=== PATIENT | female | born 1975 | race Caucasian/White ===

== ENCOUNTER 2020-05-24 16:07 | Outpatient (CLI) | payer SELFPAY ==
--- NOTE | 2020-05-25 09:56 | ONC FU_ITS ---
Dr. Dean Patient Follow-Up Note Patient: Jenna Jung Unit #: [id number]: 1975 Dicatated By: Rudi Dean M.D.Date of Visit:May 24, 2020 Onc Med Follow-up/Prog Note Chief Complaint: Ovarian cancer/fibrous dysplasia. 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 She had presented in March of 2011 with an enlarging pelvic/abdominal mass. Pelvic ultrasound reported a large cystic mass in the area of the right adnexa, though it actually was the left. In any case, the appearance was consistent with a complex cyst and excision was recommended for exclusion of underlying neoplasm. By ultrasound the cystic mass measured 17.7 x 15.8 x 11.0 cm. On 05/01/2011 she underwent laparoscopic left salpingo-oophorectomy. Initially the cyst was punctured with an aspiration needle with removal of 1870 mL of fluid. With the cyst deflated, it was noted that she had a mass arising from the left ovary. It was completely removed with the left salpingo-oophorectomy. Pathology showed grade 1 (well-differentiated) mixed sero-mucinous cyst adenocarcinoma. The tumor measured 15.0 x 14.0 cm. It was noted that the capsule was intact and there was no tumor identified on the ovarian surface. She was then referred to a ATHLETIC EQUIPMENT CUSTODIAN oncologist. On 06/05/2011 she underwent exploratory laparotomy with total abdominal hysterectomy, right salpingo-oophorectomy, bilateral pelvic periaortic lymph node dissection, omentectomy, appendectomy, and multiple peritoneal biopsies. Her final staging was 1C. She was given postoperative adjuvant chemotherapy with 6 cycles of carboplatin/Taxol, which she completed in October 2011. During subsequent followup, she was noted to have some problems in the right facial area, including the right eye. In August 2011 she underwent a biopsy of the right frontal calvarium which apparently showed fibrous dysplasia. She reported having a total of 6 or 7 surgeries, including plastic surgery on the right eye. I have not had those records available. I had seen her initially in December 2012 for follow-up of her ovarian cancer. Her evaluation at that time showed no evidence of recurrence. As she had no medical insurance, she failed to return for regular follow-up. However, she did re-establish care in June 2015. Her evaluation at that time showed no evidence of recurrence of the ovarian cancer. She was having headaches, presumably related to the fibrous dysplasia. She was given the option to undergo treatment with IV zoledronic acid. After reviewing the side effects, she ultimately declined treatment. Her medical history is significant for the ovarian cancer, for fibrous dysplasia of bone, and for anxiety/depression. She also reported having memory loss and cognitive dysfunction following her chemotherapy. She has a history of smoking 1/2 pack of cigarettes daily. She is seen for a scheduled followup visit. With her previous visit she had significant stress associated with being a caregiver for her who is very ill with ALS. 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 She has good energy and she stays very active. Her ECOG score is 0. She does not have good appetite. She says she has to remind herself to eat. Her weight is down a few pounds. She has not had fever. She does have hot flashes and sweating. Her main complaint is that she is having severe headaches on a daily basis. They tend to start in the frontal area, but they involve her whole head. She has continued taking hydrocodone/APAP 4 times a day, and she admits to taking extra Tylenol along with other [id number]-[id number] preparations, which she tends to rotate. She does not have any associated neurologic symptoms. Medications: ALPRAZolam 1 mg - Take 1 Tablet Oral PRN, Citalopram Hydrobromide 40 mg - Take 1 Tablet Oral daily, Hydrocodone-Acetaminophen 1 Tablet (of 10-325 mg) Oral four times a day PRN Allergies: No Known Allergies. Review of Systems: Constitutional - She has good energy and she remains very active. Appetite is not good. Her weight is down a few pounds. She does not have fever. She does have hot flashes and sweating. ECOG score is 0, ENMT - No sinus congestion/drainage. No mouth sores. No sore throat or difficulty swallowing, Hematologic/Lymphatic - No abnormal bruising or bleeding, Respiratory - No shortness of breath. No cough. No pleuritic pain or hemoptysis, Cardiovascular - No angina pain. No palpitations, Gastrointestinal - No nausea or vomiting. No heartburn or acid reflux. Bowel function remains adequate with stool softeners. No blood in the stool or black stools, Genitourinary (F) - No dysuria or hematuria. No urinary frequency. No urgency or incontinence, Musculoskeletal - No joint or bone pain, Integumentary - No skin rash, Neurologic - She continues to have headache on a daily basis, severe enough that at times she has missed work because of it. The headaches start in the frontal area, but her whole head hurts. She admits to taking extra Tylenol in addition to her hydrocodone/APAP. She does not have dizziness and she has no focal neurologic symptoms, Psychiatric - She has anxiety/depression and she has been under a lot of stress. No insomnia. Vital Signs: Performed on May 24, 2020 16:10 Height - 68.00 in Weight - 196.8 lbs (LOW) BSA - 2.03 sq.m BMI - 29.92 Temperature - 98.0 F (LOW) Pulse - 67 /min Respiration - 20 /min BP - 128/74 mm(hg) O2 Sat - 95 % (LOW) Pain - 4 Physical Examination: Constitutional - She looks pretty good generally, Eyes - Sclerae nonicteric. Conjunctivae clear, ENMT - No lesions noted in the oral cavity, Hematologic/Lymphatic - No cervical, clavicular, or axillary adenopathy, Respiratory - Lungs are clear with good air movement bilaterally, Cardiovascular - Heart rhythm is regular. There is a II/ sytolic murmur. There is no gallop or rub noted, Abdomen - Soft. Liver and spleen are not enlarged. There is no abdominal mass or ascites noted and there is no inguinal adenopathy, Extremities - No edema, Neurologic - No focal neurologic deficits noted. Impression: 1. The patient has serous cystadenocarcinoma of the left ovary, stage IC. 2. Her treatment included laparoscopic left salpingo-oophorectomy in April 2011 followed in May 2011 by total abdominal hysterectomy/right salpingo-oophorectomy/omentectomy/bilateral pelvic aortic lymph node dissection/appendectomy/multiple peritoneal biopsies. 3. She was then given adjuvant chemotherapy with 6 cycles of carboplatin/Taxol, completed in October 2011. She has since then been followed on observation/expectant management. 4. She has biopsy proven fibrous dysplasia involving right frontal calvarium. She has chronic headache, which she assumes is related to the fibrous dysplasia. Her other medical illnesses include: 5. She has severe chronic constipation. 6. She has chronic anxiety/depression. 7. She reports memory loss and cognitive dysfunction following the chemotherapy. She has been followed on observation following her chemotherapy. During followup she has continued to have gradually worsening headaches. 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 She has continued been taking hydrocodone/APAP 4 times a day on a regular basis, and she alternates taking additional iyrm-viv-fighfae preparations, which include Tylenol. She also has ongoing issues with anxiety/depression. There has been no evidence, though, of recurrence of the ovarian cancer. Plan: She remains on observation/expectant management for the ovarian cancer. The management of her headaches has become increasingly problematic. She is requesting to continue an opiate pain medication, with something other than hydrocodone/APAP. In the past she had poor tolerance for oxycodone because it worsened her depression. Thus far she has not had further evaluation for the headache, mainly because she is uninsured. However, at this point I think she really does need to consult with a neurologist, and I will at least do that informally. I will check into other options for managing her pain. In the meantime, she is advised that she absolutely should not be taking Tylenol or other acetaminophen preparation in addition to hydrocodone/APAP. Signed By: Rudi Dean M.D. <<Signature on File>>
== END 2020-05-24 16:08 | disposition home or self-care (01) ==
LOC: ONCMED 16:10
PROVIDERS: PCP Family Medicine; Visit Provider Internal Medicine Medical Oncology
DX: Z08 Encounter for follow-up examination after completed treatment for malignant neoplasm (principal); Z85.43 Personal history of malignant neoplasm of ovary; M85.08 Fibrous dysplasia (monostotic), other site; K59.04 Chronic idiopathic constipation; F41.9 Anxiety disorder, unspecified; F32.9 Major depressive disorder, single episode, unspecified; R41.3 Other amnesia; Z79.899 Other long term (current) drug therapy
CPT/HCPCS: G0463

== ENCOUNTER 2020-08-02 00:28 | Emergency (ER) | payer SELFPAY ==
[2020-08-02 00:36] VITALS: BP 131/76; PULSE 78; RESP 17; TEMP 36.7; O2SAT 95; BMI 30.4
--- NOTE | 2020-08-02 00:48 | CTR_ITS ---
PROCEDURE INFORMATION: Exam: CT Abdomen And Pelvis With Contrast Exam date and time: 08/02/2020 12:56 AM Age: 45 years old Clinical indication: Prior surgery; Surgery type: Hysterectomy; Patient HX: Persistent constipation x 2 months; Additional info: Bloating, constipation, pain, vomiting TECHNIQUE: Imaging protocol: Computed tomography of the abdomen and pelvis with contrast. Radiation optimization: All CT scans at this facility use at least one of these dose optimization techniques: automated exposure control; mA and/or kV adjustment per patient size (includes targeted exams where dose is matched to clinical indication); or iterative reconstruction. Contrast material: OMNI 300; Contrast volume: 95 ml; Contrast route: INTRAVENOUS (IV); COMPARISON: No relevant prior studies available. RADIATION DOSE METRICS: Total DLP (mGy-cm): 1072.87 FINDINGS: Liver: Normal. No mass. Gallbladder and bile ducts: Normal. No calcified stones. No ductal dilation. Pancreas: Normal. No ductal dilation. Spleen: Normal. No splenomegaly. Adrenal glands: Normal. No mass. Kidneys and ureters: Normal. No hydronephrosis. Stomach and bowel: Constipation. Prominent fluid in the small bowel may reflect an enteritis. Appendix: No evidence of appendicitis. Intraperitoneal space: Unremarkable. No free air. No significant fluid collection. Vasculature: Unremarkable. No abdominal aortic aneurysm. Lymph nodes: Unremarkable. No enlarged lymph nodes. Urinary bladder: Unremarkable as visualized. Reproductive: Unremarkable as visualized. Bones/joints: Unremarkable. No acute fracture. Soft tissues: Unremarkable. CT/CT abdomen pelvis w con* [id number] IMPRESSION: 1. Prominent fluid in the small bowel may reflect an enteritis. 2. Constipation. Radiation Dose CTDIVOL = (mGy): DLP = 1072.87 (mGy-cm)
--- NOTE | 2020-08-02 00:53 | W.ED.GENADLT ---
HPI - General Adult General: Chief complaint: General Medical Stated complaint: constipation, 2 months Time Seen by Provider: 08/02/20 00:37 History of Present Illness: HPI narrative: Patient arrives here with complaint abdominal pain bloating and constipation x2 months. Patient says she has done mag citrate overnight for the last 3 nights she is done for 4-5 enemas daily for the last 2 to 3 weeks. She states she is taken 2 boxes of Ducalox supppositories. Use multiple radu-jmi-lrpqpiz laxatives states she is having watery stool for the last 2 months. Said she had some dark emesis over the last 2 days. Said he has history of tummy tuck ovarian cancer and other abdominal surgeries. Said she denies fever chills shortness of breath. He has been able to eat and drink fluids though she is not eating much solid foods complaint: Constipation Onset (ago): month(s) Location: abdomen Radiation: non-radiation Severity: moderate Severity scale (1-10): 4 Quality: dull and constant Relieving factors: none Associated symptoms: Reports no associated symptoms and vomiting; Deny chest pain, dyspnea, headache(s), nausea or rash Review of Systems Const: Denies: fever(s), chills or body aches Eyes: Denies: change in vision or blurry vision ENMT: Denies: throat pain or nasal congestion Card: Denies: chest pain or dyspnea on exertion Resp: Denies: dyspnea, productive cough or non-productive cough GI: Reports: abdominal pain, vomiting, constipation and change in bowel habits; Denies: nausea Musc: Denies: extremity pain Skin/Breast: Denies: rash Neuro: Denies: headache(s) Psych: Denies: anxiety or depression Jair/Lymph: Denies: easy bruising Physical Exam Const: COMMON NORMALS: no acute distress, average body habitus and patient oriented x3 HENMT: COMMON NORMALS: normocephalic HEAD & SCALP: normal to inspection and normocephalic FACE & SINUS: normal facial exam Eye: COMMON NORMALS: conjunctivae normal GENERAL EYE: appearance normal, both eyes and all related structures CONJUNCTIVA: Yes conjunctivae normal Neck/C-Spine: COMMON NORMALS: no JVD Chest: COMMONS NORMALS: normal inspection of the chest Resp: COMMON NORMALS: normal respiratory effort and clear to auscultation bilaterally AUSCULTATION: clear to auscultation bilaterally Cardio: COMMON NORMALS: no JVD, regular rate and regular rhythm RATE: regular rate RHYTHM: regular rhythm GI: INSPECTION: Yes abdominal distension AUSCULTATION: Yes Hypoactive bowel sounds present PALPATION: Yes Tenderness to palpation present (GI) Details: RLQ and RUQ PERCUSSION: dullness to percussion RECTAL EXAM: deferred Extremity: COMMON NORMALS: normal to inspection and full ROM Neuro: COMMON NORMALS: patient oriented x3 Course Vital Signs: Vital signs: Vital Signs Temperature 98.1 F 08/02/20 00:36 Pulse Rate 76 08/02/20 01:26 Respiratory Rate 18 08/02/20 01:26 Blood Pressure 114/68 08/02/20 01:26 Pulse Oximetry 93 08/02/20 01:26 MDM - General Adult MDM Narrative: Medical decision making narrative: Discussed radiology and lab results with Dr. Qureshi agreed on plan of care. Lab Data: Labs: Lab Results 08/02/20 08/02/20 08/02/20 Range/Units 00:57 00:57 00:57 WBC 8.7 (4.0-10.0) 10^3/ uL RBC 4.47 (4.1-5.3) 10^6/u L Hgb 13.3 (11.5-15.3) g/dL Hct 39.4 (37.0-47.0) % MCV 88.1 (81-99) fL MCH 29.8 (28.0-34.0) pg MCHC 33.8 (30.0-36.0) g/dL RDW 12.7 (12.1-15.1) % Plt Count 361 (130-400) 10^3/c mm MPV 9.0 (7.4-10.4) fL Neut % (Auto) 50.8 % Lymph % (Auto) 34.9 % Glascock % (Auto) 6.1 % Eos % (Auto) 7.1 % Baso % (Auto) 0.9 % Neut # (Auto) 4.39 (1.8-7.7) 10^3/u L Lymph # (Auto) 3.0 (0.8-4.8) 10^3/u L Glascock # (Auto) 0.5 (0.2-0.9) 10^3/u L Eos # (Auto) 0.6 (0.0-0.8) 10^3/u L Baso # (Auto) 0.1 (0.0-0.1) 10^3/u L Nucleated RBC % (a uto) 0 % Nucleated RBCs # 0.0 /100WBC Sodium 138 (136-145) mmol/L Potassium 3.6 (3.5-5.1) mmol/L Chloride 100 (98-107) mmol/L Carbon Dioxide 27 (22-29) mmol/L Anion Gap 14.6 (5-19) BUN 10 (6-20) mg/dL Creatinine 0.8 (0.5-0.9) mg/dL GFR Calculation 78.3 L (90-130) mL/min Glucose 111 (65-115) mg/dL Calculated Osmolal ity 286 (285-295) mOsm/k g Lactate 2.2 (0.5-2.2) mmol/L Calcium 8.9 (8.5-10.5) mg/dL Total Bilirubin 0.2 (0.15-1.2) mg/dL AST 5 (0-32) U/L ALT 30 (0-33) U/L Alkaline Phosphata se 72 (35-105) IU/L Total Protein 7.1 (6.6-8.7) g/dL Albumin 3.9 (3.5-5.2) g/dL Globulin 3.2 (1.3-4.6) g/dL Lipase 42 (13-60) U/L HCG, Qual (Negative) 08/02/20 Range/Units 00:57 WBC (4.0-10.0) 10^3/ uL RBC (4.1-5.3) 10^6/u L Hgb (11.5-15.3) g/dL Hct (37.0-47.0) % MCV (81-99) fL MCH (28.0-34.0) pg MCHC (30.0-36.0) g/dL RDW (12.1-15.1) % Plt Count (130-400) 10^3/c mm MPV (7.4-10.4) fL Neut % (Auto) % Lymph % (Auto) % Glascock % (Auto) % Eos % (Auto) % Baso % (Auto) % Neut # (Auto) (1.8-7.7) 10^3/u L Lymph # (Auto) (0.8-4.8) 10^3/u L Glascock # (Auto) (0.2-0.9) 10^3/u L Eos # (Auto) (0.0-0.8) 10^3/u L Baso # (Auto) (0.0-0.1) 10^3/u L Nucleated RBC % (a uto) % Nucleated RBCs # /100WBC Sodium (136-145) mmol/L Potassium (3.5-5.1) mmol/L Chloride (98-107) mmol/L Carbon Dioxide (22-29) mmol/L Anion Gap (5-19) BUN (6-20) mg/dL Creatinine (0.5-0.9) mg/dL GFR Calculation (90-130) mL/min Glucose (65-115) mg/dL Calculated Osmolal ity (285-295) mOsm/k g Lactate (0.5-2.2) mmol/L Calcium (8.5-10.5) mg/dL Total Bilirubin (0.15-1.2) mg/dL AST (0-32) U/L ALT (0-33) U/L Alkaline Phosphata se (35-105) IU/L Total Protein (6.6-8.7) g/dL Albumin (3.5-5.2) g/dL Globulin (1.3-4.6) g/dL Lipase (13-60) U/L HCG, Qual Negative (Negative) Discharge Plan Discharge Patient Disposition: Home Clinical Impression: Enteritis Constipation Qualifiers: Constipation type: slow transit constipation Qualified Code(s): K59.01 - Slow transit constipation Condition: Stable Prescriptions: New lactulose 10 gram packet 10 g PO DAILY Qty: 30 RF: 0 Discharge Orders: Discharge ED (Routine); Ordered 08/02/20 Ordered By: Solitario Alcantar Referrals: Hira Osei MD [Primary Care Provider] - Discharge Diet: As Directed Discharge Activity: Increase activity as tolerated Patient Instructions: Constipation (ED) Activity Restrictions/Additional Instructions: Follow-up with medical provider as directed. Take medications as prescribed. Return to the ER or your medical provider if condition worsens. Please read and understand discharge instructions. If any questions ask please. Recommend soup diet for next 36 to 48 hours. Establish primary care provider. Use lactulose as needed to help make sure that you have normal bowel movements. Coding Level of Care Code ED Pick Pulling Machine Operator for Chg Fwd Exam Comprehensive
[2020-08-02 01:05] LABS: Basophils # 0.1 10^3/uL (0.0-0.1); Basophils % 0.9 %; Eosinophils # 0.6 10^3/uL (0.0-0.8); Eosinophils % 7.1 %; Hematocrit 39.4 % (37.0-47.0); Hemoglobin 13.3 g/dL (11.5-15.3); Lymphocytes % 34.9 %; Mean Corpuscular HGB Conc 33.8 g/dL (30.0-36.0); Mean Corpuscular Hemoglobin 29.8 pg (28.0-34.0); Mean Corpuscular Volume 88.1 fL (81-99); Monocytes # 0.5 10^3/uL (0.2-0.9); Monocytes % 6.1 %; Neutrophils # 4.39 10^3/uL (1.8-7.7); Neutrophils % 50.8 %; Nucleated Red Blood Cells % 0 %; Platelet Count 361 10^3/cmm (130-400); Red Blood Count 4.47 10^6/uL (4.1-5.3); Red Cell Distribution Width 12.7 % (12.1-15.1); White Blood Count 8.7 10^3/uL (4.0-10.0)
[2020-08-02] MEDS: iohexol 300 mg/mL 100 mL Btl IV (01:05)
[2020-08-02 01:19] LABS: HCG, Serum Qual Negative (Negative)
[2020-08-02] MEDS: sodium chloride 0.9% 1,000 ML 999 ML IV (01:23)
[2020-08-02 01:26] VITALS: BP 114/68; PULSE 76; RESP 18; O2SAT 93
[2020-08-02 01:30] LABS: Lactate (Lactic Acid level) 2.2 mmol/L (0.5-2.2)
[2020-08-02 01:31] LABS: Alanine Aminotransferase 30 U/L (0-33); Albumin Level 3.9 g/dL (3.5-5.2); Alkaline Phosphatase 72 IU/L (35-105); Anion Gap 14.6 (5-19); Blood Urea Nitrogen 10 mg/dL (6-20); Calcium 8.9 mg/dL (8.5-10.5); Carbon Dioxide 27 mmol/L (22-29); Chloride 100 mmol/L (98-107); Globulin 3.2 g/dL (1.3-4.6); Glomerular Filtration Rate 78.3 mL/min (90-130); Glucose 111 mg/dL (65-115); Lipase 42 U/L (13-60); Osmolality Calculated 286 mOsm/kg (285-295); Potassium 3.6 mmol/L (3.5-5.1); Sodium 138 mmol/L (136-145); Total Bilirubin 0.2 mg/dL (0.15-1.2); Total Protein 7.1 g/dL (6.6-8.7)
[2020-08-02 01:40] LABS: Aspartate Amino Transferase 5 U/L (0-32)
[2020-08-02 01:55] LABS: Add Urine Microscopic? YES; Bilirubin Urine Neg (Negative); Blood Urine Neg (Negative); Glucose Urine UA Norm (Normal); Ketones Urine Negative (Negative); Leukocyte Esterase Urine Trace (Negative); Nitrate Urine Negative (Negative); Protein Urine Neg (Negative); Specific Gravity, Urine 1.015 (1.005-1.030); Urine Appearance Clear (CLEAR); Urine Color Yellow (Yellow); Urobilinogen Urine Norm (Negative); pH Urine 6.5 (5-7)
[2020-08-02 01:58] LABS: Add Urine Culture? No; Bacteria Urine TRACE /hpf; RBC Urine 0-4 /hpf (0-2); Squamous Epithelial Cell Urine 0-4 /hpf (0-5); WBC Urine 0-4 /hpf (0-5)
[2020-08-02] MEDS: lactulose oral liq 20 gm/30 mL UDC PO (02:00)
[2020-08-02 02:02] VITALS: BP 111/82; PULSE 82; RESP 16; O2SAT 95
== END 2020-08-02 02:02 | disposition home or self-care (01) ==
PROVIDERS: Emergency Provider Nurse Practitioner Family; PCP Family Medicine
DX: K59.01 Slow transit constipation (principal); K52.9 Noninfective gastroenteritis and colitis, unspecified
CPT/HCPCS: 74177; 80053; 81001; 83605; 83690; 84703; 85025; 96360; 99283; J7030; Q9967

== ENCOUNTER 2021-06-20 09:09 | Outpatient (CLI) | payer MEDICAID, SELFPAY ==
[2021-06-20 09:39] LABS: Basophils # 0.1 10^3/uL (0.0-0.1); Basophils % 0.7 %; Eosinophils # 0.3 10^3/uL (0.0-0.8); Eosinophils % 2.6 %; Hemoglobin 13.7 g/dL (11.5-15.3); Lymphocytes # 2.7 10^3/uL (0.8-4.8); Lymphocytes % 25.5 %; Mean Corpuscular HGB Conc 32.6 g/dL (30.0-36.0); Mean Corpuscular Hemoglobin 28.1 pg (28.0-34.0); Mean Corpuscular Volume 86.2 fl (81-99); Monocytes # 0.8 10^3/uL (0.2-0.9); Monocytes % 7.5 %; Neutrophils # 6.58 10^3/uL (1.8-7.7); Neutrophils % 63.4 %; Nucleated Red Blood Cells % 0 %; Platelet Count 395 10^3/cmm (130-400); Red Blood Count 4.87 10^6/uL (4.1-5.3); White Blood Count 10.4 10^3/uL (4.0-10.0)
[2021-06-20 10:01] LABS: Alanine Aminotransferase 18 U/L (0-33); Albumin Level 4.5 g/dL (3.5-5.2); Alkaline Phosphatase 77 IU/L (35-105); Aspartate Amino Transferase 17 U/L (0-32); Blood Urea Nitrogen 8 mg/dL (6-20); Calcium 8.9 mg/dL (8.5-10.5); Carbon Dioxide 25 mmol/L (22-29); Chloride 103 mmol/L (98-107); Glomerular Filtration Rate 108.6 mL/min (90-130); Glucose 110 mg/dL (65-115); Osmolality Calculated 291 mOsm/kg (285-295); Sodium 141 mmol/L (136-145); Total Bilirubin 0.2 mg/dL (0.15-1.2); Total Protein 7.5 g/dL (6.6-8.7)
--- NOTE | 2021-06-20 17:12 | ONC FU_ITS ---
Dr. Dean Patient Follow-Up Note Patient: Jenna Jung Unit #: [id number]: 1975 Dicatated By: Rudi Dean M.D.Date of Visit:Jun 20, 2021 Onc Med Follow-up/Prog Note Chief Complaint: Ovarian cancer/fibrous dysplasia. 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 She had presented in March of 2011 with an enlarging pelvic/abdominal mass. Pelvic ultrasound reported a large cystic mass in the area of the right adnexa, though it actually was the left. In any case, the appearance was consistent with a complex cyst and excision was recommended for exclusion of underlying neoplasm. By ultrasound the cystic mass measured 17.7 x 15.8 x 11.0 cm. On 05/01/2011 she underwent laparoscopic left salpingo-oophorectomy. Initially the cyst was punctured with an aspiration needle with removal of 1870 mL of fluid. With the cyst deflated, it was noted that she had a mass arising from the left ovary. It was completely removed with the left salpingo-oophorectomy. Pathology showed grade 1 (well-differentiated) mixed sero-mucinous cyst adenocarcinoma. The tumor measured 15.0 x 14.0 cm. It was noted that the capsule was intact and there was no tumor identified on the ovarian surface. She was then referred to a DELIVERY ASSISTANT oncologist. On 06/05/2011 she underwent exploratory laparotomy with total abdominal hysterectomy, right salpingo-oophorectomy, bilateral pelvic periaortic lymph node dissection, omentectomy, appendectomy, and multiple peritoneal biopsies. Her final staging was 1C. She was given postoperative adjuvant chemotherapy with 6 cycles of carboplatin/Taxol, which she completed in October 2011. During subsequent followup, she was noted to have some problems in the right facial area, including the right eye. In August 2011 she underwent a biopsy of the right frontal calvarium which apparently showed fibrous dysplasia. She reported having a total of 6 or 7 surgeries, including plastic surgery on the right eye. Those records were not available. I had seen her initially in December 2012 for follow-up of her ovarian cancer. Her evaluation at that time showed no evidence of recurrence. As she had no medical insurance, she failed to return for regular follow-up. However, she did re-establish care in June 2015. Her evaluation at that time showed no evidence of recurrence of the ovarian cancer. She was having headaches, presumably related to the fibrous dysplasia. She was given the option to undergo treatment with IV zoledronic acid. After reviewing the side effects, she ultimately declined treatment. Her medical history is significant for the ovarian cancer, for fibrous dysplasia of bone, and for anxiety/depression. She also reported having memory loss and cognitive dysfunction following her chemotherapy. She has a history of smoking 1/2 pack of cigarettes daily. She is seen for a follow-up visit. Her main complaint is that she has been having extreme depression. Prior to her last visit she had lost her who had been on long-term care for ALS. Her older son then in September, and within a few months after that his fianc??? also . She has one remaining son, who is 17 years old. She is very concerned because he recently has started having some muscle fasciculations. She had previously been taking citalopram, but that recently was changed to fluoxetine 20 mg daily. As yet she has not noticed any benefit with it. She tends to have a feeling of doom, as if something terrible is going to happen. She says her energy is terrible. She is able to do some housework, but overall she does not have much activity. Her appetite is not very good, but she has had significant weight gain. By our scale she is up 20 pounds since May 2020. She does not have fever, she does have a lot of hot flashes and sweating. She also reports having hair loss. She continues to have headaches. They tend to start in the frontal area and radiate to the occipital area. She has gotten off her pain medication and she is now managing the headaches with Excedrin. She has not had sore mouth or throat. She does not complain of cough, and she has not been having shortness of breath or chest pain. She currently has no GI or complaints. She previously had chronic constipation, but that has improved since she stopped the pain medication. She is not having any significant joint or bone pain. She has no focal neurologic symptoms. Medications: ALPRAZolam 1 mg - Take 1 Tablet Oral PRN, FLUoxetine HCl 1 Tablet (of 20 mg) Oral daily, Hydrocodone-Acetaminophen 1 Tablet (of 10-325 mg) Oral four times a day PRN Allergies: No Known Allergies. Vital Signs: Performed on Jun 20, 2021 10:33 Height - 68.00 in Weight - 216.6 lbs (HIGH) BSA - 2.11 sq.m BMI - 32.93 (HIGH) Temperature - 97.4 F (LOW) Pulse - 72 /min Respiration - 18 /min BP - 120/82 mm(hg) O2 Sat - 98 % Pain - 0 Fatigue - 5 Physical Examination: Constitutional - She looks pretty good generally, Eyes - Sclerae nonicteric. Conjunctivae clear, ENMT - No lesions noted in the oral cavity, Hematologic/Lymphatic - No cervical, clavicular, or axillary adenopathy, Respiratory - Lungs are clear with good air movement bilaterally, Cardiovascular - Heart rhythm is regular. There is a II/ sytolic murmur. There is no gallop or rub noted, Abdomen - Soft. There is a small ventral hernia just above and to the right of the umbilicus. Liver and spleen are not enlarged. There is no abdominal mass or ascites noted and there is no inguinal adenopathy, Extremities - No edema. Pedal pulses are palpable bilaterally, Neurologic - No focal neurologic deficits noted. Lab/Imaging: Test performed on Jun 20, 2021 09:29 Sodium 141 mmol/L Potassium 4.0 mmol/L Chloride 103 mmol/L CO2 25 mmol/L Anion Gap 17.0 BUN 8 mg/dL Creatinine 0.6 mg/dL Cr Clearance (Est) 185.58 mL/min eGFR 108.6 mL/min Glucose 110 mg/dL Osmolality - Calculated 291 mOsm/kg Calcium 8.9 mg/dL Protein, Total 7.5 g/dL Albumin 4.5 g/dL Globulin 3.0 g/dL Bilirubin, Total 0.2 mg/dL ALT (SGPT) 18 U/L AST (SGOT) 17 U/L Alkaline Phosphatase 77 IU/L WBC 10.4 10 3/uL RBC 4.87 10 6/uL HGB 13.7 g/dL HCT 42.0 % MCV 86.2 fl MCH 28.1 pg MCHC 32.6 g/dL RDW 14.0 % Platelet Count 395 10 3/cmm MPV 9.0 fL Neutrophils 6.58 10 3/uL Lymphocytes 2.7 10 3/uL Monocytes 0.8 10 3/uL Eosinophils 0.3 10 3/uL Basophils 0.1 10 3/uL Neutrophil % 63.4 % Lymphocyte % 25.5 % Monocyte % 7.5 % Eosinophil % 2.6 % Basophils % 0.7 % NRBC % 0 % Problem List: 1. Serous cystadenocarcinoma of the left ovary, stage IC. 2. She has biopsy proven fibrous dysplasia involving right frontal calvarium. 3. She has chronic headache. 4. She has chronic anxiety/depression. Problems Addressed with this Encounter and Plan: 1. Patient with serous cystadenocarcinoma of the left ovary, stage IC. She had presented with a large ovarian cystic mass. Her initial surgery included laparoscopic left salpingo-oophorectomy April 2011. Pathology showed grade 1 mixed sero-mucinous cystadenocarcinoma. In May 2011 she underwent total abdominal hysterectomy, right salpingo-oophorectomy, omentectomy, bilateral pelvic aortic lymph node dissection, appendectomy, and multiple peritoneal biopsies. Pathologic staging was T1a, N0. Due to intraoperative cyst aspiration, her clinical staging was IC (T1c, N0, M0). She was given postoperative adjuvant chemotherapy with 6 cycles of carboplatin/Taxol, completed in October 2011. She has been on expectant management following her chemotherapy. Thus far there has been no evidence of recurrence of the ovarian cancer. At this point her risk for recurrence would appear to be low, but in reviewing her records it does not appear that she ever had BRCA testing, and I think that needs to be done pending verification of insurance coverage, as it potentially would influence her risk for development of other malignancies and it would have obvious implications for her family. 2. She has chronic headaches. She has biopsy-proven fibrous dysplasia of the frontal calvarium, which was the presumed cause. At this point I am not so certain that she does not just have migraine. I am going to discuss this with Dr. Thomas. 3. She has chronic anxiety and depression. It has worsened during the past year or so. Her medication was recently changed from citalopram to fluoxetine 20 mg daily. Thus far she does not seem to be getting any benefit, and I will now increase the fluoxetine dosage to 40 mg daily. She will continue alprazolam at the same dosage. Signed By: Rudi Dean M.D. <<Signature on File>>
== END 2021-06-20 09:10 | disposition home or self-care (01) ==
LOC: ONCMED 09:14
PROVIDERS: PCP Family Medicine; Visit Provider Internal Medicine Medical Oncology
DX: Z85.43 Personal history of malignant neoplasm of ovary (principal); F41.9 Anxiety disorder, unspecified; F32.A Depression, unspecified; M85.08 Fibrous dysplasia (monostotic), other site; F17.210 Nicotine dependence, cigarettes, uncomplicated; Z79.899 Other long term (current) drug therapy
CPT/HCPCS: 36415; 80053; 85025; 99214

== ENCOUNTER 2021-09-25 10:14 | Outpatient (CLI) | payer MEDICAID, SELFPAY ==
[2021-09-25 11:13] LABS: Basophils % 0.6 %; Eosinophils # 0.3 10^3/uL (0.0-0.8); Hematocrit 40.6 % (37.0-47.0); Hemoglobin 13.2 g/dL (11.5-15.3); Lymphocytes # 1.6 10^3/uL (0.8-4.8); Lymphocytes % 25.9 %; Mean Corpuscular HGB Conc 32.5 g/dL (30.0-36.0); Mean Corpuscular Hemoglobin 26.9 pg (28.0-34.0); Mean Corpuscular Volume 82.7 fl (81-99); Mean Platelet Volume 9.4 fL (7.4-10.4); Monocytes # 0.5 10^3/uL (0.2-0.9); Monocytes % 7.2 %; Neutrophils # 3.82 10^3/uL (1.8-7.7); Nucleated Red Blood Cells % 0 %; Platelet Count 367 10^3/cmm (130-400); Red Blood Count 4.91 10^6/uL (4.1-5.3); Red Cell Distribution Width 14.1 % (12.1-15.1); White Blood Count 6.3 10^3/uL (4.0-10.0)
--- NOTE | 2021-09-25 11:27 | ONC FU_ITS ---
Thelma Handley Progress Note Patient: Jenna Jung Unit #: [id number]: 1975 Dicatated By: Thelma Handley N.P.Date of Visit:Sep 25, 2021 Onc MED Follow-up/Prog Note Chief Complaint: Ovarian cancer/fibrous dysplasia. 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 She had presented in March of 2011 with an enlarging pelvic/abdominal mass. Pelvic ultrasound reported a large cystic mass in the area of the right adnexa, though it actually was the left. In any case, the appearance was consistent with a complex cyst and excision was recommended for exclusion of underlying neoplasm. By ultrasound the cystic mass measured 17.7 x 15.8 x 11.0 cm. On 05/01/2011 she underwent laparoscopic left salpingo-oophorectomy. Initially the cyst was punctured with an aspiration needle with removal of 1870 mL of fluid. With the cyst deflated, it was noted that she had a mass arising from the left ovary. It was completely removed with the left salpingo-oophorectomy. Pathology showed grade 1 (well-differentiated) mixed sero-mucinous cyst adenocarcinoma. The tumor measured 15.0 x 14.0 cm. It was noted that the capsule was intact and there was no tumor identified on the ovarian surface. She was then referred to a ACCOUNT RECEIVABLE ASSOCIATE oncologist. On 06/05/2011 she underwent exploratory laparotomy with total abdominal hysterectomy, right salpingo-oophorectomy, bilateral pelvic periaortic lymph node dissection, omentectomy, appendectomy, and multiple peritoneal biopsies. Her final staging was 1C. She was given postoperative adjuvant chemotherapy with 6 cycles of carboplatin/Taxol, which she completed in October 2011. During subsequent followup, she was noted to have some problems in the right facial area, including the right eye. In August 2011 she underwent a biopsy of the right frontal calvarium which apparently showed fibrous dysplasia. She reported having a total of 6 or 7 surgeries, including plastic surgery on the right eye. Those records were not available. I had seen her initially in December 2012 for follow-up of her ovarian cancer. Her evaluation at that time showed no evidence of recurrence. As she had no medical insurance, she failed to return for regular follow-up. However, she did re-establish care in June 2015. Her evaluation at that time showed no evidence of recurrence of the ovarian cancer. She was having headaches, presumably related to the fibrous dysplasia. She was given the option to undergo treatment with IV zoledronic acid. After reviewing the side effects, she ultimately declined treatment. Her medical history is significant for the ovarian cancer, for fibrous dysplasia of bone, and for anxiety/depression. She also reported having memory loss and cognitive dysfunction following her chemotherapy. She has a history of smoking 1/2 pack of cigarettes daily. Patient presents today for follow-up. She has been seen in the past for severe depression and she was started on fluoxetine 20 mg daily. She was then increased to 40 mg daily. She states that she can tell that the fluoxetine helped but now she seems to be sinking back into her depression. She has a history of significant family loss including her and her son. She then lost her fianc???. She denies suicidal thoughts. She has extreme fatigue. She is also gained a lot of weight. She denies fever, chills, night sweats. No GI problems and no problems. She has a history of chronic headaches which is controlled with Excedrin. Review Of Symptoms: See above Past Medical History: Anxiety/depression Fibrous dysplasia of bone Ovarian cancer Past Surgical History: Eye surgery Biopsy of right frontal calvarium in 2011 KELLY, right SO, omentectomy, pelvic periaortic lymph node dissection, appendectomy, multiple biopsies in 2010 Laparoscopic left salpigo-oophorectomy in 2010 Allergies: No Known Allergies. Medications: ALPRAZolam 1 mg - Take 1 Tablet Oral PRN FLUoxetine HCl 1 Tablet (of 20 mg) Oral daily Family History: Both parents are still living. Her father has coronary artery disease. Her mother is in good health. She has 2 half siblings, but she doesn't know much about them. A maternal aunt had lung cancer. There is no history of breast or ovarian cancer in the family. Social History: Ms. Jung is and she is unemployed. She is a daily smoker who smokes 0.5 packs/day. She has no history of drinking. Ms. Jung reports the following support systems: lives with spouse, significant other, family, or friends, lives in own house, supportive family/friends willing to assist with needs, and adequate transportation available for expected visits. Her diet consists of regular meals. She indicates her activity level as: daily activities. She smokes approximately 1/2 pack of cigarettes daily. She has had some alcohol use off and on for the past 15 years, but never heavy. Physical Examination: Performed on Sep 25, 2021 10:24: Height - 68.00 in, Weight - 212.8 lbs (LOW), BSA - 2.10 sq.m, BMI - 32.36 (HIGH), Temperature - 97.8 F (LOW), Pulse - 81 /min, Respiration - 18 /min, BP - 133/85 mm(hg), O2 Sat - 97 %, Pain - 0, and Fatigue - 7. Performance Status: 1 - No physically strenuous activity, but ambulatory and able to carry out light or sedentary work (e.g. office work, light house work). (ECOG) Constitutional Alert, cooperative, oriented. Mood and affect appropriate. Appears close to chronological age. Well nourished. Well developed. Head Normocephalic; no scars. Respiratory Lungs are clear to auscultation without rhonchi or wheezing. Cardiovascular Regular rate and rhythm of heart without murmurs, gallops or rubs. Abdomen Non-tender, non-distended, no masses, ascites or hepatosplenomegaly. Good bowel sounds. No guarding or rebound tenderness. Psychiatric Alert and oriented times three. Coherent speech. Verbalizes understanding of our discussions today. Laboratory: Test performed on Sep 25, 2021 10:50 WBC 6.3 10 3/uL RBC 4.91 10 6/uL HGB 13.2 g/dL HCT 40.6 % MCV 82.7 fl MCH 26.9 pg MCHC 32.5 g/dL RDW 14.1 % Platelet Count 367 10 3/cmm MPV 9.4 fL Neutrophils 3.82 10 3/uL Lymphocytes 1.6 10 3/uL Monocytes 0.5 10 3/uL Eosinophils 0.3 10 3/uL Basophils 0.0 10 3/uL Neutrophil % 61.0 % Lymphocyte % 25.9 % Monocyte % 7.2 % Eosinophil % 5.0 % Basophils % 0.6 % NRBC % 0 % Test performed on Jun 20, 2021 09:29 Sodium 141 mmol/L Potassium 4.0 mmol/L Chloride 103 mmol/L CO2 25 mmol/L Anion Gap 17.0 BUN 8 mg/dL Creatinine 0.6 mg/dL Cr Clearance (Est) 185.58 mL/min eGFR 108.6 mL/min Glucose 110 mg/dL Osmolality - Calculated 291 mOsm/kg Calcium 8.9 mg/dL Protein, Total 7.5 g/dL Albumin 4.5 g/dL Globulin 3.0 g/dL Bilirubin, Total 0.2 mg/dL ALT (SGPT) 18 U/L AST (SGOT) 17 U/L Alkaline Phosphatase 77 IU/L Impression: 1. Serous cystadenocarcinoma of the left ovary, stage IC. 2. She has biopsy proven fibrous dysplasia involving right frontal calvarium. 3. She has chronic headache. 4. She has chronic anxiety/depression. Plan: 1. Patient with serous cystadenocarcinoma of the left ovary, stage IC. She had presented with a large ovarian cystic mass. Her initial surgery included laparoscopic left salpingo-oophorectomy April 2011. Pathology showed grade 1 mixed sero-mucinous cystadenocarcinoma. In May 2011 she underwent total abdominal hysterectomy, right salpingo-oophorectomy, omentectomy, bilateral pelvic aortic lymph node dissection, appendectomy, and multiple peritoneal biopsies. Pathologic staging was T1a, N0. Due to intraoperative cyst aspiration, her clinical staging was IC (T1c, N0, M0). She was given postoperative adjuvant chemotherapy with 6 cycles of carboplatin/Taxol, completed in October 2011. She has been on expectant management following her chemotherapy. Thus far there has been no evidence of recurrence of the ovarian cancer. At this point her risk for recurrence would appear to be low, but in reviewing her records it does not appear that she ever had BRCA testing, and I think that needs to be done pending verification of insurance coverage, as it potentially would influence her risk for development of other malignancies and it would have obvious implications for her family. 2. She has chronic headaches. She has biopsy-proven fibrous dysplasia of the frontal calvarium, which was the presumed cause. At this point I am not so certain that she does not just have migraine. 3. She has chronic anxiety and depression. It has worsened during the past year or so. Her medication was recently changed from citalopram to fluoxetine 20 mg daily. She was then increased to fluoxetine 40 mg daily. She is requesting an add-on medication such as Abilify but that needs to be addressed by behavioral health provider. We will place a referral. She will continue her alprazolam at the same dose. 4. Patient is having chronic fatigue. We will check today including a CBC, TSH, vitamin B12. This could all be related to her depression but we will rule out physiological causes. She will return to the clinic in 1 month with CBC and CMP. Signed By: Thelma Handley N.P. <<Signature on File>>
[2021-09-25 11:57] LABS: Thyroid Stimulating Hormone 1.07 uIU/mL (0.27-4.20); Vitamin B12 245 pg/mL (232-1245)
== END 2021-09-25 10:15 | disposition home or self-care (01) ==
PROVIDERS: PCP Family Medicine; Visit Provider Nurse Practitioner Family
DX: Z85.43 Personal history of malignant neoplasm of ovary (principal); M85.08 Fibrous dysplasia (monostotic), other site; Z90.722 Acquired absence of ovaries, bilateral; Z90.711 Acquired absence of uterus with remaining cervical stump; Z92.21 Personal history of antineoplastic chemotherapy; R51.9 Headache, unspecified; F41.9 Anxiety disorder, unspecified; R53.82 Chronic fatigue, unspecified
CPT/HCPCS: 36415; 82607; 84443; 85025; 99214